=== PATIENT | male | born 1965 | race Caucasian/White ===

== ENCOUNTER 2022-08-15 19:12 | Emergency (ER) | payer SELFPAY ==
[~2022-08-15] VITALS: Ht 167.6 cm; Wt 77.5 kg
[2022-08-15 23:37] VITALS: BP 155/90
[2022-08-16] MEDS ORDERED: TETANUS-DIPTH-ACEL PERTUSSIS 0.5ML SYR Tdap IM ONE
[2022-08-16] MEDS ORDERED: AMOX500C2 PO (03:01)
== END 2022-08-16 03:36 | disposition home or self-care (01) ==
LOC: ER 19:12
DX: S01.81XA Laceration without foreign body of other part of head, initial encounter (principal); W22.8XXA Striking against or struck by other objects, initial encounter; Y93.89 Activity, other specified; Y92.89 Other specified places as the place of occurrence of the external cause; Y99.8 Other external cause status
CPT/HCPCS: 12011; 70486; 90471; 90715